=== PATIENT | female | born 1990 | race Caucasian/White ===

== ENCOUNTER 2021-01-19 19:09 | Emergency (ER) | payer OTHER ==
[~2021-01-19] VITALS: Ht 160 cm; Wt 52.2 kg
[2021-01-19 19:31] VITALS: BP 120/70
--- NOTE | 2021-01-19 19:50 | Emergency Room Report ---
History of Present Illness General Chief Complaint: Laceration Source: Patient Present Illness HPI 30-year-old female with no signal past medical history here due to a laceration left fourth finger. Patient accidentally cut himself herself with a knife. Is up-to-date with tetanus shot. Minimal bleeding noted. Appears to be superficial. Has full range of motion. Denies tingling numbness. Has full strength of the upper extremities. Denies . Allergies: Coded Allergies: No Known Allergies (Unverified , 01/19/21) COVID-19 Screening Contact w/high risk pt: No Experienced COVID-19 symptoms?: No COVID-19 Testing performed [employer]ER: No Patient History Past Medical History: see triage record Past Surgical History: none Pertinent Family History: none Last Menstrual Period: 12-24-20 Now: No Immunizations: UTD Reviewed Nursing Documentation: PMH: Agreed; PSxH: Agreed Nursing Documentation-PMH Past Medical History: No Stated History Review of Systems All Other Systems: negative except mentioned in HPI Physical Exam Vital Signs Date Time Temp Pulse Resp B/P (MAP) Pulse Ox O2 Delivery O2 Flow Rate FiO2 01/19/21 19:13 98.6 74 18 122/71 (88) Room Air 01/19/21 19:31 99 Sp02 EP Interpretation: reviewed, normal General Appearance: no apparent distress, alert, GCS 15, non-toxic Head: normocephalic, atraumatic Neck: supple Respiratory: no retraction, no accessory muscle use Cardiovascular #1: no edema, no murmur Cardiovascular #2: 2+ radial (R), 2+ radial (L) Gastrointestinal: soft Musculoskeletal: back normal, other - Neurovascularly intact Neurologic: alert, motor strength/tone normal, oriented x3, sensory intact, responsive, speech normal Psychiatric: judgement/insight normal, memory normal, mood/affect normal, no suicidal/homicidal ideation Skin: laceration - Superficial laceration about 1 cm dorsum of left fourth finger Lymphatic: no adenopathy Procedures Laceration/Wound Repair Laceration/Wound Repair : Consent: Verbal Wound Location: upper extremity - Left fourth finger Wound Length (cm): 1 Wound Explored: clean Wound Repaired With: Dermabond Sterile Dressing Applied?: Yes Splint Applied?: Yes Type of Splint Applied: metal Sling Applied?: No Patient Tolerated: Well Complications: None Medical Decision Making PA Attestation ALL Diagnosis and treatment plan reviewed and discussed with my supervising physician Dr. Duke Diagnostic Impression: Primary Impression: Finger laceration ER Course 30-year-old female with no signal past medical history here due to a laceration left fourth finger. Patient accidentally cut himself herself with a knife. Is up-to-date with tetanus shot. Minimal bleeding noted. Appears to be superficial. Has full range of motion. Denies tingling numbness. Has full strength of the upper extremities. Denies . Ddx considered but are not limited to : Superficial laceration, deep laceration, tendon involvement with laceration, laceration with foreign body Vital signs: are WNL, pt. is afebrile H&PE are most consistent with: Superficial laceration of finger ORDERS: Augmentin, mupirocin ointment ED INTERVENTIONS: Wound closure DISCHARGE: At this time pt. is stable for d/c to home. Will provide printed patient care instructions, and any necessary prescriptions. Care plan and follow up instructions have been discussed with the patient prior to discharge. Proper wound management advised patient, patient medication as directed, worsening symptoms return to the emergency room Last Vital Signs Date Time Temp Pulse Resp B/P (MAP) Pulse Ox O2 Delivery O2 Flow Rate FiO2 01/19/21 19:31 97.4 79 18 120/70 99 Room Air Disposition: HOME, SELF-CARE Condition: Stable Scripts Mupirocin* (MUPIROCIN*) 22 Gm Oint...g. 1 APPLIC TOPIC THREE TIMES A DAY, #22 GM Prov: Jessica Nowak 01/19/21 Amoxicillin/Potassium Clav 875-125* (AUGMENTIN 875-125 TABLET*) 1 Each Tablet 1 TAB ORAL TWICE A DAY for 5 Days, #10 TAB Prov: Jessica Nowak 01/19/21 Referrals: [facility],REFERRING (PCP) Patient Instructions: Laceration Care, Adult Additional Instructions: Take medication as directed, follow with primary care provider, worsening sym ptoms return to the emergency Jessica Nowak Jan 19, 2021 19:50
[2021-01-19] MEDS ORDERED: MUPIROCIN22 GM TOPIC (19:51)
[2021-01-19] MEDS ORDERED: AUGMENTIN 875-1 EAC1 ORAL (19:51)
--- NOTE | 2021-01-19 20:10 | NUR ---
Patient was discharge home as EDP ordered. All vital signs were taken within normal range. Patient . All prescriptions and instructions were given to the patient . Patient verbalized understanding. patient left the hospital in stable condition .
[2021-01-19 20:11] VITALS: BP 120/75
== END 2021-01-19 20:13 | disposition home or self-care (01) ==
LOC: EMR 19:30
DX: S61.215A Laceration without foreign body of left ring finger without damage to nail, initial encounter (principal); W26.0XXA Contact with knife, initial encounter; Y92.9 Unspecified place or not applicable
CPT/HCPCS: 12001; Z7502; 99282